=== PATIENT | female | born 1965 | race Caucasian/White ===

== ENCOUNTER 2017-12-09 14:17 | Inpatient (IN) | payer OTHER ==
[~2017-12-09] VITALS: Ht 154.9 cm; Wt 65.5 kg
[~2017-12-09 14:17] MED LIST: ALBU8I INH; ATOR40TA49 PO; CLON.1 PO; CLOP75 PO; DEXAMETHASONE SOD PHOS 4 MG/ML VIAL IV ONE; ECOT81TA2 PO; ESTR1TAB68 PO; LACTATED RINGER'S 1000 ML INJ 1,000 ML IV ONE; LIDOCAINE HCL 1% PF 5 ML SYRINGE OTHER ONE; METO25 PO; ONDANSETRON HCL 4 MG/2 ML VIAL IV PUSH ONE; PHENYLEPH/NS 1000 MCG/10 ML SYR IV ONE; PROPOFOL 200 MG/20 ML AMP IV ONE; ROCURONIUM INJ 50 MG/5 ML SYRINGE IV PUSH ONE
[2017-12-09 14:27] VITALS: BP 185/85; PULSE 70; RESP 16; TEMP 99.7; O2SAT 99
[2017-12-09] MEDS ORDERED: METO25TA3 PO (14:47)
[2017-12-09] MEDS ORDERED: LOSA50TA PO (14:47)
[2017-12-09 14:49] LABS: BLOOD, URINE SMALL (NEG); GLUCOSE,URINE NEG (NEG); KETONE, URINE 80 OR GREATER mg/dL (NEG); NITRITE,URINE NEG (NEG); PH, URINE 5.5 (5.0-8.5); URINE COLOR YELLOW (YELLW/STRAW); URINE LEUKOCYTE ESTERASE NEG (NEG)
[2017-12-09 14:55] LABS: BILIRUBIN, URINE NEG (NEG)
--- NOTE | 2017-12-09 14:56 | PD ---
HPI Chief Complaint: Abdominal Pain Time Seen by Provider: 14:34 Travel History International Travel<30 days: No Contact w/Intl Traveler<30days: No Traveled to known affect area: No History of Present Illness HPI This 57-year-old female says she woke up around 1:00 this morning with epigastric pain. Since the pain started is been fairly constant. She was feeling her belly and noted that she had some tenderness on the right side. She has no history of abdominal surgery. She did have a colonoscopy 2 weeks ago which was done routinely in a couple of polyps were removed. She has had no appetite today. She drank some water and it seemed to make the pain worse. SHe had low-grade fever when it was measured here. She has not vomited there is been no diarrhea. She has a history of myocardial infarction 2 years ago which was manifested by elevated enzymes. The cath was done and apparently showed minimal irregularity.. PFSH Past Medical History Asthma: Yes Cardiovascular Problems: Yes (htn on meds, [place]) Coronary Artery Disease: Yes Diminished Hearing: No Hypertension: Yes Myocardial Infarction: Yes (2015) Influenza Vaccination: No ?: Not LMP: 8 months ago Past Surgical History Abdominal Surgery: Yes (COLONOSCOPY 11/27/2017) Social History Alcohol Use: Yes (1 DRINK DAILY) Tobacco Use: No ( A TEENAGER) Substance Use: No Allergies-Medications (Allergen,Severity, Reaction): Coded Allergies: azithromycin (Unverified Allergy, Severe, 12/09/17) hearing loss codeine (Verified Allergy, Intermediate, n/d, 12/09/17) levofloxacin (Unverified Allergy, Intermediate, Rash, 12/09/17) penicillin G (Unverified Allergy, Unknown, 12/09/17) isosorbide (Verified Adverse Reaction, Unknown, lethargic, 12/09/17) Reported Meds & Prescriptions Reported Meds & Active Scripts Active Reported Metoprolol Tartrate 25 Mg Tab 12.5 Mg PO BID Losartan (Losartan Potassium) 50 Mg Tab 50 Mg PO DAILY Review of Systems Except as stated in HPI: all other systems reviewed are Neg General / Constitutional: Positive: Fever HENT: No: Headaches, Vertigo Cardiovascular: No: Chest Pain or Discomfort, Palpitations Respiratory: No: Cough, Shortness of Breath Gastrointestinal: Positive: Nausea Genitourinary: No: Urgency, Frequency Musculoskeletal: No: Myalgias, Arthralgias Skin: No Rash, No Itching Physical Exam Narrative GENERAL: Well-developed female SKIN: Focused skin assessment warm/dry. HEAD: Atraumatic. Normocephalic. EYES: Pupils equal and round. No scleral icterus. No injection or drainage. ENT: No nasal bleeding or discharge. Mucous membranes pink and moist. NECK: Trachea midline. No JVD. CARDIOVASCULAR: Regular rate and rhythm. No murmur appreciated. RESPIRATORY: No accessory muscle use. Clear to auscultation. Breath sounds equal bilaterally. GASTROINTESTINAL: Abdomen soft, there is right lower quadrant tenderness, nondistended. Hepatic and splenic margins not palpable. MUSCULOSKELETAL: No obvious deformities. No clubbing. No cyanosis. No edema. NEUROLOGICAL: Awake and alert. No obvious cranial nerve deficits. Motor grossly within normal limits. Normal speech. PSYCHIATRIC: Appropriate mood and affect; insight and judgment normal. Data Data Last Documented VS Vital Signs Date Time Temp Pulse Resp B/P (MAP) Pulse Ox O2 Delivery O2 Flow Rate FiO2 12/09/17 14:27 99.7 70 16 185/85 (118) 99 Orders Orders Urinalysis - C+S If Indicated (12/09/17 14:18) Ed Urine Pregnancytest Poc (12/09/17 14:18) Complete Blood Count With Diff (12/09/17 14:48) Comprehensive Metabolic Panel (12/09/17 14:48) Lipase (12/09/17 14:48) Ct Abd/Pel W Iv Contrast(Rout) (12/09/17 14:48) Labs Laboratory Tests Test 12/09/17 14:35 [facility] Medical Decision Making Medical Screen Exam Complete: Yes Emergency Medical Condition: Yes Medical Record Reviewed: Yes Differential Diagnosis Differential includes UTI, appendicitis Narrative Course Presentation is very suspicious for appendicitis. Lab work and CT scan have been ordered Levi Pollack MD Dec 09, 2017 14:56
[2017-12-09] MEDS ORDERED: ONDANSETRON HCL 4 MG/2 ML VIAL IV PUSH ONE ×2 (15:00→15:15)
[2017-12-09] MEDS ORDERED: SODIUM CHLOR 0.9% 1000 ML INJ 1,000 ML IV ONE (15:00)
[2017-12-09] MEDS ORDERED: MORPHINE SULFATE 8 MG/ML INJ IV PUSH ONE ×2 (15:00→15:15)
--- NOTE | 2017-12-09 15:11 | PD ---
Physical Exam Narrative Received sign out from previous team to follow up labs and CT a/p to r/o appendicitis. 52yo F with PMH of HTN and [place] presents to the ED with c/o epigastric abdominal pain that started at 1am. Now it is more in right lower abdomen on exam. Labs reviewed, leukocytosis at 15.6. H/H normal. CMP unremarkable. Lipase normal. UA showed WBC 3-5. Culture not indicated. CT a/p showed acute nonperforated appendicitis with fecalith. Pt given morphine, NS IVF and zofran. Discussed with Dr. Justice who requested pt be transfer to [facility] and go straight to the OR holding area. Pt said morphine helped but pain but it is returning so ordered another dose. Pt is NPO and awaiting transfer. Data Data Last Documented VS Vital Signs Date Time Temp Pulse Resp B/P (MAP) Pulse Ox O2 Delivery O2 Flow Rate FiO2 12/09/17 16:35 98.8 72 16 138/77 (97) 96 Room Air Orders Orders Urinalysis - C+S If Indicated (12/09/17 14:18) Ed Urine Pregnancytest Poc (12/09/17 14:18) Complete Blood Count With Diff (12/09/17 14:48) Comprehensive Metabolic Panel (12/09/17 14:48) Lipase (12/09/17 14:48) Ct Abd/Pel W Iv Contrast(Rout) (12/09/17 14:48) Sodium Chlor 0.9% 1000 Ml Inj (Ns 1000 M (12/09/17 15:00) Ondansetron Inj (Zofran Inj) (12/09/17 15:00) Morphine Inj (Morphine Inj) (12/09/17 15:00) Ondansetron Inj (Zofran Inj) (12/09/17 15:15) Morphine Inj (Morphine Inj) (12/09/17 15:15) Iohexol 350 Inj (Omnipaque 350 Inj) (12/09/17 16:04) NPO (12/09/17 16:25) Admit Order (Ed Use Only) (12/09/17 16:46) Morphine Inj (Morphine Inj) (12/09/17 17:00) Labs Laboratory Tests Test 12/09/17 14:35 12/09/17 14:51 Urine Color YELLOW Urine Turbidity CLEAR Urine pH 5.5 Urine Specific [place] GREATER/EQUAL 1.030 Urine Protein NEG mg/dL Urine Glucose (UA) NEG mg/dL Urine Ketones 80 OR GREATER mg/dL Urine Occult Blood SMALL Urine Nitrite NEG Urine Bilirubin NEG Urine Urobilinogen 0.2 MG/DL Urine Leukocyte Esterase NEG Urine RBC 4-9 /hpf Urine WBC 3-5 /hpf Urine Squamous Epithelial Cells 6-8 /hpf Microscopic Urinalysis Comment CULT NOT INDICATED White Blood Count 15.6 TH/MM3 Red Blood Count 4.44 MIL/MM3 Hemoglobin 14.0 GM/DL Hematocrit 41.4 % Mean Corpuscular Volume 93.1 FL Mean Corpuscular Hemoglobin 31.5 PG Mean Corpuscular Hemoglobin Concent 33.8 % Red Cell Distribution Width 12.5 % Platelet Count 275 TH/MM3 Mean Platelet Volume 8.8 FL Neutrophils (%) (Auto) 90.2 % Lymphocytes (%) (Auto) 4.3 % Monocytes (%) (Auto) 4.8 % Eosinophils (%) (Auto) 0.1 % Basophils (%) (Auto) 0.6 % Neutrophils # (Auto) 14.1 TH/MM3 Lymphocytes # (Auto) 0.7 TH/MM3 Monocytes # (Auto) 0.7 TH/MM3 Eosinophils # (Auto) 0.0 TH/MM3 Basophils # (Auto) 0.1 TH/MM3 CBC Comment DIFF FINAL Differential Comment Blood Urea Nitrogen 10 MG/DL Creatinine 0.70 MG/DL Random Glucose 99 MG/DL Total Protein 7.6 GM/DL Albumin 4.2 GM/DL Calcium Level 8.3 MG/DL Alkaline Phosphatase 46 U/L Aspartate Amino Transf (AST/SGOT) 16 U/L Alanine Aminotransferase (ALT/SGPT) 30 U/L Total Bilirubin 0.7 MG/DL Sodium Level 137 MEQ/L Potassium Level 3.8 MEQ/L Chloride Level 101 MEQ/L Carbon Dioxide Level 23.6 MEQ/L Anion Gap 12 MEQ/L Estimat Glomerular Filtration Rate 89 ML/MIN Lipase 112 U/L [facility] Supervised Visit with CHUCKY: No Diagnosis Primary Impression: Acute appendicitis Qualified Codes: K35.80 - Unspecified acute appendicitis Admitting Information Admitting Physician Requests: Admit Florinda Upton DO Dec 09, 2017 15:11
[2017-12-09 15:12] LABS: AUTOMATED NEUTROPHIL # 14.1 TH/MM3 (1.8-7.7); BASOPHIL # 0.1 TH/MM3 (0-0.2); BASOPHIL % 0.6 % (0.0-2.0); EOSINOPHIL % 0.1 % (0.0-4.0); HEMATOCRIT 41.4 % (35.0-46.0); LYMPH % 4.3 % (9.0-44.0); LYMPHOCYTE # 0.7 TH/MM3 (1.0-4.8); MEAN CELL VOLUME 93.1 FL (80.0-100.0); MEAN CORPUSCULAR HEMOGLOBIN 31.5 PG (27.0-34.0); MEAN CORPUSCULAR HGB CONC 33.8 % (32.0-36.0); MEAN PLATELET VOLUME 8.8 FL (7.0-11.0); MONO % 4.8 % (0.0-8.0); MONOCYTE # 0.7 TH/MM3 (0-0.9); NEUT % 90.2 % (16.0-70.0); PLATELET COUNT 275 TH/MM3 (150-450); RED BLOOD COUNT 4.44 MIL/MM3 (4.00-5.30); RED CELL DISTRIBUTION WIDTH 12.5 % (11.6-17.2); WHITE BLOOD COUNT 15.6 TH/MM3 (4.0-11.0)
[2017-12-09 15:24] LABS: CHLORIDE 101 MEQ/L (98-107); SODIUM (NA) 137 MEQ/L (136-145)
[2017-12-09 15:29] LABS: ALBUMIN 4.2 GM/DL (3.4-5.0); BICARBONATE 23.6 MEQ/L (21.0-32.0); CALCIUM 8.3 MG/DL (8.5-10.1); GLUCOSE,RANDOM 99 MG/DL (74-106)
[2017-12-09 15:30] LABS: BLOOD UREA NITROGEN 10 MG/DL (7-18)
[2017-12-09 15:32] LABS: ALT (GPT) 30 U/L (10-53); AST (GOT) 16 U/L (15-37); GLOMERULAR FILTRATION RATE 89 ML/MIN (>89)
[2017-12-09 15:34] LABS: TOTAL BILIRUBIN ADULT 0.7 MG/DL (0.2-1.0); TOTAL PROTEIN 7.6 GM/DL (6.4-8.2)
[2017-12-09 15:35] LABS: ALKALINE PHOSPHATASE 46 U/L (45-117)
[2017-12-09] MEDS ORDERED: IOHEXOL 350 MG/ML 10 ML VIAL (for RAD DIAG) IVCONTRAST ONE (16:04)
--- NOTE | 2017-12-09 16:07 | RADRPT ---
EXAM DATE: 12/09/2017 3:44 PM EDT AGE/SEX: 52 years / Female INDICATIONS: Right lower quadrant pain. CLINICAL DATA: This is the patient's initial encounter. Patient reports that signs and symptoms have been present for 1 day and indicates a pain score of 7/10. MEDICAL/SURGICAL HISTORY: Hypertension. Cardiovascular disease. . Recent colonoscopy with poly p removal. ORAL CONTRAST: No oral contrast ingested. RADIATION DOSE: 7.98 CTDI (mGy) COMPARISON: No prior exams available for comparison. TECHNIQUE: Multiple contiguous axial images were obtained through the abdomen and pelvis following b olus infusion of 100 ml Omnipaque 350 (iohexol) nonionic water-soluble contrast as a single exam do se. No oral contrast ingested. Using automated exposure control and adjustment of the mA and/or kV a ccording to patient size, the radiation dose was kept as low as reasonably achievable to obtain optim al diagnostic quality images. FINDINGS: The lower lungs are clear. The liver and gallbladder are unremarkable The spleen and pancreas appear normal Adrenal glands appear normal Symmetrical renal function without renal mass There is no retrograde no adenopathy Multiple calcifications are seen in a dilated appendix without inflammatory changes. Findings are sti ll suspicious for an early appendicitis. Trace free fluid is present in the pelvis. Uterus and adnexal regions are unremarkable . CONCLUSION: 1. Findings consistent with acute nonperforated appendicitis with fecalith. One of the fecalith is i n the neck of the appendix. Electronically signed by: Yrn Navarrete MD 12/09/2017 3:55 PM EDT
[2017-12-09 16:35] VITALS: BP 138/77; PULSE 72; RESP 16; TEMP 98.8; O2SAT 96
[2017-12-09] MEDS ORDERED: MORPHINE SULFATE 4 MG/ML INJ IV PUSH ONE ×2 (17:00→19:30)
--- NOTE | 2017-12-09 19:31 | MH ---
cc: Luis Mckeon MD, Joel L MD DATE OF ADMISSION: 12/09/2017 HISTORY OF PRESENT ILLNESS: This is a patient, a 57-year-old, who presented to the emergency room with a complaint of abdominal pain. The patient states the pain started about 1 a.m. It was located in the epigastric region. She describes the pain as a cramping pain. As the day progressed, the pain persisted and moved to her right side. The patient states the pain was a 7/8 on presentation to the emergency room; now it is a 5/5. She also states that she has loose bowel movements and a low-grade temperature in the emergency room. No urinary symptoms. No chest pains or shortness of breath. PAST MEDICAL HISTORY: Significant for MO 2 years prior, asthma, hypertension. PAST SURGICAL HISTORY: Significant for foot surgery. MEDICATIONS AT HOME: Can be obtained from the medical record. ALLERGIES: PENICILLIN, LEVOFLOXACIN, CODEINE, AZITHROMYCIN. SOCIAL HISTORY: She does not smoke. She drinks alcohol occasionally. FAMILY HISTORY: Noncontributory. REVIEW OF SYSTEMS: Significant for above. All other 10 point negative. PHYSICAL EXAMINATION: GENERAL: The patient is lying in a stretcher in no acute distress. HEENT: Pupils are equal and reactive. NECK: Trachea is midline. LUNGS: Respirations clear. CARDIOVASCULAR: Regular. GASTROINTESTINAL: Soft, positive tenderness, greatest in the right lower quadrant. MUSCULOSKELETAL: No deformity. NEUROLOGIC: Nonfocal. LABORATORY DATA: The patient has a white blood cell count of 15. IMAGING STUDIES: CAT scan of the abdomen and pelvis reveals dilated appendix. ASSESSMENT: This is a patient with acute appendicitis. PLAN: Take the patient to the operating room for laparoscopic appendectomy. Risks and benefits explained to include, but not exclusive to infection, bleeding, bowel injury, bladder injury, ureter injury. Technical aspects explained as well as floridalma and postoperative course. The patient verbalized understanding. Consent was obtained. MD EMILIA Dye/ , 07:10 PM , 07:28 PM
[2017-12-09] MEDS ORDERED: CLINDAMYCIN 600 MG/NS PREMIX 50 ML IV ONE (20:00)
[2017-12-09] MEDS ORDERED: SUGAMMADEX SODIUM 200 MG/2 ML VIAL IV PUSH ONE (20:49)
[2017-12-09] MEDS ORDERED: ACETAMINOPHEN 1000 MG/100 ML 100 ML IV ONE (20:49)
[2017-12-09] MEDS ORDERED: BUPIVACAINE/EPINEPHRINE 0.5% PF 30 ML VIAL ONE (20:57)
[2017-12-09] MEDS ORDERED: METOCLOPRAMIDE HCL 10 MG/2 ML VIAL IVS PRN (22:00)
[2017-12-09] MEDS ORDERED: MORPHINE SULFATE 4 MG/ML INJ IV PUSH PRN (22:00)
[2017-12-09] MEDS ORDERED: SODIUM CHLORIDE 0.9% FLUSH 10 ML FLUSH IV FLUSH PRN (22:00)
[2017-12-09] MEDS ORDERED: DO NOT ADM ANY ANTICOAGULANT DRUGS PRN (22:10)
[2017-12-09] MEDS ORDERED: Post-op Orders (for Pharmacy) XX ONE (22:10)
[2017-12-09] MEDS ORDERED: *MEPERIDINE 25 MG INJ VIAL PERIprocedural Use ONLY ONE (22:18)
[2017-12-09] MEDS ORDERED: MIDAZOLAM HCL 2 MG/2 ML VIAL ONE (22:18)
--- NOTE | 2017-12-09 22:23 | MP ---
cc: Luis Mckeon MD DATE OF OPERATION: 12/09/2017 PREOPERATIVE DIAGNOSIS: Acute appendicitis. POSTOPERATIVE DIAGNOSIS: Acute appendicitis. PROCEDURE PERFORMED: Laparoscopic appendectomy. SURGEON: Luis Mckeon MD ANESTHESIA: General endotracheal anesthesia. ESTIMATED BLOOD LOSS: Scant. FINDINGS: Gangrenous appendix with purulent fluid in the pelvis. SPECIMEN: Appendix. COMPLICATIONS: None. DESCRIPTION OF PROCEDURE: The patient was brought to the operating room, placed on the operating table in supine position. Bilateral sequential compression devices placed on lower extremities. General anesthesia instituted. Antibiotics initiated. The abdomen was prepped and draped sterilely. A point in the umbilical region anesthetized with 0.25% Marcaine with epinephrine. Skin incision was made, 5 mm Optiview port placed under direct vision and pneumoperitoneum created. Under direct vision, a 5 mm suprapubic port and 12 mm left lower quadrant port was placed. Prior to placement of all ports, the skin and peritoneum were anesthetized with 0.25% Marcaine with epinephrine. The patient was placed in Trendelenburg position right side up. The appendix was visualized, findings as above. The mesoappendix was using the Harmonic scalpel. Appendix was mobilized at its base. The appendix was amputated at its base using an endovascular staple blue load. The appendix was retrieved from the peritoneal cavity in an Endopouch through the 12 mm port site. The pelvis was irrigated with copious amounts of saline. The fascia at the 12 mm port site approximated with 0 Vicryl using fascial closure device. CO2 released, all ports removed, all skin incisions closed with 4-0 Monocryl. The abdominal wall was cleaned and sterile dressing placed. The patient was awakened and taken to the recovery room. MD EMILIA Dye/PAXTON , 10:01 PM , 10:21 PM
[2017-12-09] MEDS ORDERED: CLINDAMYCIN INJ 600 MG in SODIUM CHLORIDE 0.9% INJ 50 ML IV SCH (23:00)
[2017-12-10 00:01] VITALS: BP 123/56; PULSE 78; RESP 17; TEMP 98.3; O2SAT 94
[2017-12-10] MEDS: D5-NS + KCL 20 MEQ INJ 1,000 ML IV SCH ×2 (00:03→05:19)
[2017-12-10] MEDS: CLINDAMYCIN INJ 600 MG in SODIUM CHLORIDE 0.9% INJ 50 ML IV SCH ×3 (03:27→17:47)
[2017-12-10 04:00] VITALS: BP 98/50; PULSE 72; RESP 17; TEMP 97.9; O2SAT 97
[2017-12-10 04:40] LABS: AUTOMATED NEUTROPHIL # 12.3 TH/MM3 (1.8-7.7); BASOPHIL % 0.1 % (0.0-2.0); HEMATOCRIT 36.6 % (35.0-46.0); HEMOGLOBIN 12.3 GM/DL (11.6-15.3); LYMPH % 2.8 % (9.0-44.0); LYMPHOCYTE # 0.4 TH/MM3 (1.0-4.8); MEAN CELL VOLUME 91.9 FL (80.0-100.0); MEAN CORPUSCULAR HEMOGLOBIN 30.8 PG (27.0-34.0); MEAN CORPUSCULAR HGB CONC 33.5 % (32.0-36.0); MONO % 3.8 % (0.0-8.0); MONOCYTE # 0.5 TH/MM3 (0-0.9); NEUT % 93.3 % (16.0-70.0); PLATELET COUNT 216 TH/MM3 (150-450); RED BLOOD COUNT 3.98 MIL/MM3 (4.00-5.30); RED CELL DISTRIBUTION WIDTH 13.2 % (11.6-17.2); WHITE BLOOD COUNT 13.2 TH/MM3 (4.0-11.0)
[2017-12-10 08:00] VITALS: BP 127/64; PULSE 70; RESP 18; TEMP 98.8; O2SAT 98
[2017-12-10] MEDS ORDERED: SODIUM CHLORIDE 0.9% FLUSH 10 ML FLUSH IV FLUSH SCH (09:00)
[2017-12-10] MEDS ORDERED: DOCUSATE SODIUM 100 MG CAP PO SCH (09:00)
[2017-12-10] MEDS: HYDROmorphone HCL 2 MG TAB PO PRN ×2 (09:10→16:09)
[2017-12-10] MEDS ORDERED: CLIN300C5 PO (09:23)
[2017-12-10 12:00] VITALS: BP 166/76; PULSE 70; RESP 18; TEMP 98.2; O2SAT 98
[2017-12-10] MEDS ORDERED: METOPROLOL TARTRATE 25 MG TAB PO SCH (14:30)
[2017-12-10] MEDS ORDERED: LOSARTAN 50 MG TAB PO SCH (14:30)
[2017-12-10] MEDS ORDERED: KETO10 PO (14:44)
--- NOTE | 2017-12-10 14:52 | HHI.PR ---
Subjective Subjective Notes Feeling much better No more nausea Normal post-operative pain Tolerating PO intake Objective Vitals/I&O Vital Signs Date Time Temp Pulse Resp B/P (MAP) Pulse Ox O2 Delivery O2 Flow Rate FiO2 12/10/17 12:00 98.2 70 18 166/76 (106) 98 12/09/17 23:24 Room Air 12/09/17 22:45 2 Labs Laboratory Tests Test 12/09/17 14:51 12/10/17 03:48 White Blood Count 15.6 13.2 Red Blood Count 4.44 3.98 Hemoglobin 14.0 12.3 Hematocrit 41.4 36.6 Mean Corpuscular Volume 93.1 91.9 Mean Corpuscular Hemoglobin 31.5 30.8 Mean Corpuscular Hemoglobin Concent 33.8 33.5 Red Cell Distribution Width 12.5 13.2 Platelet Count 275 216 Mean Platelet Volume 8.8 9.0 Neutrophils (%) (Auto) 90.2 93.3 Lymphocytes (%) (Auto) 4.3 2.8 Monocytes (%) (Auto) 4.8 3.8 Eosinophils (%) (Auto) 0.1 0.0 Basophils (%) (Auto) 0.6 0.1 Neutrophils # (Auto) 14.1 12.3 Lymphocytes # (Auto) 0.7 0.4 Monocytes # (Auto) 0.7 0.5 Eosinophils # (Auto) 0.0 0.0 Basophils # (Auto) 0.1 0.0 CBC Comment DIFF FINAL DIFF FINAL Differential Comment Blood Urea Nitrogen 10 Creatinine 0.70 Random Glucose 99 Total Protein 7.6 Albumin 4.2 Calcium Level 8.3 Alkaline Phosphatase 46 Aspartate Amino Transf (AST/SGOT) 16 Alanine Aminotransferase (ALT/SGPT) 30 Total Bilirubin 0.7 Sodium Level 137 Potassium Level 3.8 Chloride Level 101 Carbon Dioxide Level 23.6 Anion Gap 12 Estimat Glomerular Filtration Rate 89 Lipase 112 Radiology Last Impressions Abdomen/Pelvis CT 12/09/17 1448 Signed Impressions: . CONCLUSION: 1. Findings consistent with acute nonperforated appendicitis with fecalith. On e of the fecalith is in the neck of the appendix. Abdomen: Post-op tenderness Extremities: Perfused Wound Wound : Wound Location: Abdomen Appearance: Clean & Dry A/P Assessment and Plan 52yo F POD#1 laparoscopic appendectomy -Once BP stabilizes can restart home meds -Ok to lock IV -Abdominal binder for comfort -Once last dose of Clindamycin is complete, pt is ok to discharge The exam, history, and the medical decision-making described in the above note were completed with the assistance of the mid-level provider. I reviewed and agree with the findings presented. I attest that I had a [id number] encounter with the patient on the same day, and personally performed and documented my assessment and findings in the medical record. Anitra Castillo Dec 10, 2017 14:52 Luis Mckeon MD Dec 10, 2017 18:45
--- NOTE | 2017-12-10 18:34 | EKG ---
Date Performed: 12/09/2017 Time Performed: 17:12:58 PTAGE: 52 years EKG: Sinus rhythm LOW QRS VOLTAGE IN PRECORDIAL LEADS BORDERLINE ECG WARNING: DATA QUALITY MAY AFFECT INTERPRETATION PREVIOUS TRACING : 08/23/2015 04.57 Since the previous tracing, no significant change not ed DOCTOR: Paris Soler Interpretating Date/Time 12/10/2017 18:32:54
== END 2017-12-10 18:51 | disposition home or self-care (01) | DRG 343 ==
LOC: PHED 14:17 → PHEDA 16:48 → HPAC 18:11 → N06B 23:31
PROVIDERS: ADMIT Surgery; ATTEND Surgery
PROC: 0DTJ4ZZ Resection of Appendix, Percutaneous Endoscopic Approach (ICD-10-PCS; principal; 2017-12-09 21:09)
DX: K35.80 Unspecified acute appendicitis (principal); I10 Essential (primary) hypertension; K38.1 Appendicular concretions; I25.10 Atherosclerotic heart disease of native coronary artery without angina pectoris; I25.2 Old myocardial infarction; Z88.0 Allergy status to penicillin; Z88.1 Allergy status to other antibiotic agents; Z88.5 Allergy status to narcotic agent
CPT/HCPCS: 74177; 80053; 81001; 83690; 84703; 85025; 88304; 93005; 94150; J0131; J1100; J2175; J2250; J2270; J2370; J2405; J3010; J3480; J7030; J7120; Q9967